=== PATIENT | female | born 1970 | race Asian ===

== ENCOUNTER 2016-12-15 14:29 | Emergency (ER) | payer SELFPAY ==
[~2016-12-15] VITALS: Ht 157.5 cm; Wt 52.0 kg
[2016-12-15 14:33] VITALS: TEMP 36.8; Ht 157.5 cm; Wt 52.0 kg
[2016-12-15 15:25] VITALS: BP 98/48; PULSE 58; O2SAT 99
--- NOTE | 2016-12-15 15:46 | EMERGENCY ROOM VISIT NOTE ---
History First contact with patient: 14:41 Chief Complaint: BITE Stated Complaint: BITE History of Present Illness The patient is a 46 year old female who presents to the Emergency Room with complaints of a scratch to her left foot. The patient reports that this injury happened today after her daughter's dog was playing and the dog's tooth scratched her foot. The patient cleaned the wound and applied iodine. She denies any pain. The patient's tetanus immunization is up-to-date within 2 years. The dogs shots, including rabies series, are also up-to-date. The patient denies any pain on my exam. Review of Systems 6 system review was performed and was negative except for pertinent positives and negatives as indicated in history of present illness Past Medical/Surgical History Medical Problems: (1) Leiomyoma Surgical Problems: (1) No history of previous surgery Family History FH: diabetes mellitus FH: hypertension Social History Smoking Status: Never Smoker Alcohol Use: none Marital Status: Housing Status: lives with family Occupation Status: employed Current/Historical Medications No Active Prescriptions or Reported Meds Physical Exam Vital Signs Date Time Temp Pulse Resp B/P (MAP) Pulse Ox O2 Delivery O2 Flow Rate FiO2 12/15/16 15:25 58 20 98/48 99 Room Air 12/15/16 14:33 36.8 64 17 95/61 100 Room Air Physical Exam CONSTITUTIONAL: Healthy and well nourished. Patient does not appear in any acute distress. HEENT: Normocephalic, atraumatic. No scleral icterus or conjunctival injection. NECK: Full active range of motion without discomfort. MUSCULOSKELETAL: Examination of the left foot shows a superficial abrasion near the webspace of the dorsal first and second toe. It does not extend into the underlying dermis or subcutaneous pain. There is no bloody presentation. The patient has no discomfort with range of motion of the first and second toes. Capillary refill is less than 2 seconds. INTEGUMENTARY: No rash or other significant dermatologic conditions noted. NEUROLOGIC: Left foot and toes are sensory intact. Medical Decision & Procedures ED Course Patient history and physical exam were performed. Nurse's notes were reviewed. Vital signs were reviewed, showing hypotension. The patient does not appear in any acute distress. Examination shows a superficial abrasion that will not require any further intervention. I did encourage the family to watch for any signs of infection. The family and patient were happy with plan of care, and voiced understanding of all discharge instructions. Medical Decision Blood Pressure Screening Patient's blood pressure: Low blood pressure Impression Primary Impression: Abrasion, left foot, initial encounter Departure Information Dispostion Home / Self-Care Condition GOOD Prescriptions No Active Prescriptions or Reported Meds Forms HOME CARE DOCUMENTATION FORM, IMPORTANT VISIT INFORMATION Patient Instructions My [facility] [employer] Additional Instructions Watch for any signs of developing redness, swelling, red streaks, pain or fever. Clean wound daily with soap and water. You may also apply a small amount of antibiotic ointment and Band-Aid.
== END 2016-12-15 15:26 | disposition home or self-care (01) ==
LOC: C.EDB 14:32 → C.EDD 15:26
DX: S90.812A Abrasion, left foot, initial encounter (principal); W54.8XXA Other contact with dog, initial encounter; Z83.3 Family history of diabetes mellitus; Z82.49 Family history of ischemic heart disease and other diseases of the circulatory system